=== PATIENT | male | born 1940 | race Caucasian/White ===

== ENCOUNTER → 2020-03-28 | Outpatient (CLI) | payer OTHER | LOC: M.RAD 08:32 | PROVIDERS: ATTEND Urology | DX: N20.0 Calculus of kidney (principal); R19.5 Other fecal abnormalities ==

== ENCOUNTER → 2021-07-16 | Outpatient (CLI) | payer OTHER | LOC: M.LAB 12:33 | PROVIDERS: ATTEND Internal Medicine Gastroenterology | DX: Z01.812 Encounter for preprocedural laboratory examination (principal); Z20.822 Contact with and (suspected) exposure to COVID-19 ==